=== PATIENT | female | born 1955 | race Caucasian/White ===

== ENCOUNTER 2017-01-06 17:03 | Emergency (ER) | payer BC, OTHER ==
[2017-01-06 17:21] VITALS: BMI 25.1
[2017-01-06 18:45] LABS: BASOPHIL 0.3 % (0-2.0); EOSINOPHIL 1.4 % (0-4.5); MCH 32.5 pg (25.7-33.7); MCHC 33.2 g/dl (32.0-36.0); MEAN PLT VOLUME 8.5 fl (7.5-11.1); NEUTROPHILS 56.6 % (42.8-82.8); PLATELET COUNT 227 K/MM3 (134-434); WHITE BLOOD COUNT 6.3 K/mm3 (4.0-10.0)
--- NOTE | 2017-01-06 18:52 | PDOC ---
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 The patient describes the paresthesias as pins and needles. She notes that the fatigue is accompanied by a weak, off- balance feeling when walking. She reports nausea, denies vomiting. She reports shortness of breath with no alleviating or exacerbating factors. The patients last immunotherapy (Opdivo) was on 01/04/17, 2 days ago. Denies chest pain, cough. Denies fever, chills, vomiting. Denies dizziness, headache, lightheadedness. Denies abdominal pain, diarrhea. Denies history of anemia. Allergies: none reported Surgical Hx: left lobectomy (08/2012), right ankle ORIF Social Hx: Quit smoking in 2012 PCP: Dr. Fabiola Montes Oncologist: Dr. Eaton at [facility] Neurologist: Dr. Mcgovern [facility] <Mitzy Springer - Last Filed: 01/06/17 19:08> <Colleen Zendejas - Last Filed: 01/06/17 21:53> - General Chief Complaint: Weakness Stated Complaint: WEAKNESS Time Seen by Provider: 01/06/17 17:44 Past History <Mitzy Springer - Last Filed: 01/06/17 19:08> - Past Medical History Anemia: No Asthma: No Cancer: Yes (LUNG, METS TO BRAIN &ADRENALS) Cardiac Disorders: No CVA: No COPD: Yes CHF: No Dementia: No Diabetes: No GI Disorders: Yes (acid reflux) Disorders: No HTN: No Hypercholesterolemia: No Liver Disease: No Seizures: No Thyroid Disease: No Lung CA: Yes - Surgical History Abdominal Surgery: No Appendectomy: No Cardiac Surgery: No Cholecystectomy: No Lung Surgery: Yes (left upper pulmonectomy) Neurologic Surgery: No Orthopedic Surgery: Yes - Psycho/Social/Smoking Cessation Hx Anxiety: No Suicidal Ideation: No Smoking History: Former smoker Have you smoked in the past 12 months: No If you are a former smoker, when did you quit?: 4yrs ago Information on smoking cessation initiated: No Hx Alcohol Use: No Drug/Substance Use Hx: No Substance Use Type: None <Colleen Zendejas - Last Filed: 01/06/17 21:53> - Past Medical History Allergies/Adverse Reactions: Allergies Allergy/AdvReac Type Severity Reaction Status Date / Time No Known Drug Allergies Allergy Verified 01/06/17 17:17 Home Medications: Ambulatory Orders Bupropion HCl [Wellbutrin -] 75 mg PO DAILY 09/19/14 Levetiracetam 500 mg PO BID 09/19/14 Escitalopram Oxalate [Lexapro -] 10 mg PO HS 04/26/15 Levothyroxine [Synthroid -] 112 mcg PO DAILY 01/06/17 Review of Systems - Review of Systems Able to Perform ROS?: Yes Comments:: 01/06/17 19:08 CONSTITUTIONAL: Present: fatigue, Absent: fever, chills, diaphoresis, malaise, loss of appetite HEENT: Absent: rhinorrhea, nasal congestion, throat pain, throat swelling, difficulty swallowing, mouth swelling, ear pain, eye pain, visual Changes CARDIOVASCULAR: Absent: chest pain, syncope, palpitations, irregular heart rate, lightheadedness , peripheral edema RESPIRATORY: Present: shortness of breath Absent: cough, dyspnea with exertion, orthopnea, wheezing, stridor, hemoptysis GASTROINTESTINAL: Present: nausea Absent: abdominal pain, abdominal distension, vomiting, diarrhea, constipation, melena, hematochezia GENITOURINARY: Absent: dysuria, frequency, urgency, hesitancy, hematuria, flank pain, genital pain MUSCULOSKELETAL: Absent: myalgia, arthralgia, joint swelling SKIN: Absent: rash, itching, pallor HEMATOLOGIC/IMMUNOLOGIC: Absent: easy bleeding, easy bruising, lymphadenopathy, frequent infections ENDOCRINE: Absent: unexplained weight gain, unexplained weight loss, heat intolerance, cold intolerance NEUROLOGIC: Present: paresthesias in the upper and lower extremities bilaterally. Absent: headache, focal weakness, dizziness, unsteady gait, seizure, mental status changes, bladder or bowel incontinence PSYCHIATRIC: Absent: anxiety, depression, suicidal or homicidal ideation, hallucinations. <Mitzy Springer - Last Filed: 06/11/17 19:08> *Physical Exam - Vital Signs Last Vital Signs Temp Pulse Resp BP Pulse Ox 97.8 F 89 18 117/72 100 01/06/17 17:13 01/06/17 17:13 01/06/17 17:13 01/06/17 17:13 01/06/17 17:13 - Physical Exam Comments: 01/06/17 19:08 GENERAL: Well developed, well nourished. Awake and alert. No acute distress. HEENT: Normocephalic, atraumatic. PERRLA, EOMI. No conjunctival pallor. Sclera are non- icteric. Moist mucous membranes. Oropharynx is clear. NECK: Supple. Full ROM. No JVD. Carotid pulses 2+ and symmetric, without bruits. No thyromegaly. No lymphadenopathy. CARDIOVASCULAR: +murmur. No bruits. Regular rate and rhythm. No rubs, or gallops. Distal pulses are 2+ and symmetric. PULMONARY: No evidence of respiratory distress. Lungs clear to auscultation bilaterally. No wheezing, rales or rhonchi. ABDOMINAL: Soft. Non-tender. Non-distended. No rebound or guarding. No organomegaly. Normoactive bowel sounds. MUSCULOSKELETAL Normal range of motion at all joints. No bony deformities or tenderness. No CVA tenderness. EXTREMITIES: No cyanosis. No clubbing. No edema. No calf tenderness. SKIN: Warm and dry. Normal capillary refill. No rashes. No jaundice. NEUROLOGICAL: Alert, awake, appropriate. Cranial nerves 2-12 intact. No deficits to light touch and temperature in face, upper extremities and lower extremities. No motor deficits in the in face, upper extremities and lower extremities. Normoreflexic in the upper and lower extremities. Normal speech. Toes are down-going bilaterally. Gait is normal without ataxia. No dysmetria. PSYCHIATRIC: Cooperative. Good eye contact. Appropriate mood and affect. <Mitzy Springer - Last Filed: 01/06/17 19:08> - Vital Signs Last Vital Signs Temp Pulse Resp BP Pulse Ox 97.8 F 89 18 117/72 100 01/06/17 17:13 01/06/17 17:13 01/06/17 17:13 01/06/17 17:13 01/06/17 17:13 <Colleen Zendejas - Last Filed: 01/06/17 21:53> ED Treatment Course - LABORATORY CBC & Chemistry Diagram: 01/06/17 18:36 01/06/17 18:36 - ADDITIONAL ORDERS Additional order review: 01/06/17 18:36 RBC 3.54 L MCV 98.0 H MCHC 33.2 RDW 14.0 MPV 8.5 Neutrophils % 56.6 Lymphocytes % 30.3 D Monocytes % 11.4 H Eosinophils % 1.4 Basophils % 0.3 <Butch [place] - Last Filed: 01/06/17 19:08> - LABORATORY CBC & Chemistry Diagram: 01/06/17 18:36 01/06/17 18:36 - ADDITIONAL ORDERS Additional order review: 01/06/17 18:36 RBC 3.54 L MCV 98.0 H MCHC 33.2 RDW 14.0 MPV 8.5 Neutrophils % 56.6 Lymphocytes % 30.3 D Monocytes % 11.4 H Eosinophils % 1.4 Basophils % 0.3 - RADIOLOGY Radiology Studies Ordered: Category Date Time Status CHEST X-RAY PORTABLE* [RAD] Stat Radiology 01/06/17 18:32 Ordered <Colleen Zendejas - Last Filed: 01/06/17 21:53> Medical Decision Making - Medical Decision Making 01/06/17 18:48 61-year-old female presents with several days of fatigue, tingling in arms and legs bilaterally, feeling off balance, nausea . She feels shortness of breath. She recently received her immunotherapy and has been out in the sun for the last couple days -No vomiting, no diarrhea, no fever, no chills, no cough Histories significant for her taking immunotherapy with OPDIVO Past medical history significant for lung cancer and she is status post left lobectomy 2013 Social history , quit smoking in 2012, occasionally uses alcohol - oncologist is Dr. Brien Eaton -Her doctor is Dr Montes She is afebrile, normotensive, pulse in the 80s and she is 100% on room air 01/06/17 21:39 The patient does not want CAT scan of her head. She says she feels much better after fluids and she wants to go home. I told her glucose is only 69 and then she showed me her chemistries that were done on Saturday and at that time. The glucose is 74. I told her to eat some food. She says she feels much better now and feels that she was out in the sun too long. This no evidence of any acute coronary syndrome. Cardiac enzymes are negative. An EKG did not show any acute ischemia. Patient will be discharged home to follow-up with her regular physicians <Colleen Zendejas - Last Filed: 01/06/17 21:53> *DC/Admit/Observation/Transfer - Attestations Scribe Attestion: 01/06/17 19:09 Documentation prepared by DRAGAN Ren, acting as certified medical coder for Colleen Zendejas MD. <Mitzy Springer - Last Filed: 01/06/17 19:08> <Colleen Zendejas - Last Filed: 01/06/17 21:53> Diagnosis at time of Disposition: Weakness - Discharge Dispostion Disposition: HOME Condition at time of disposition: Stable - Referrals Referrals: Fabiola Montes MD [Primary Care Provider] - - Patient Instructions Printed Discharge Instructions: DI for Numbness/tingling, DI for Fatigue Additional Instructions: please follow up with your regular physician return for any worsening symptoms
[2017-01-06 19:10] LABS: ALBUMIN 3.6 g/dl (3.4-5.0); ANION GAP 13 (8-16); BILIRUBIN,TOTAL 0.3 mg/dL (0.2-1.0); CALCIUM 8.7 mg/dL (8.5-10.1); CO2 22 mmol/L (21-32); CREATININE 1.1 mg/dL (0.55-1.02); GLUCOSE,RANDOM 69 mg/dL (74-106); SGOT/AST 13 U/L (15-37); SGPT/ALT 13 U/L (12-78)
[2017-01-06 19:13] LABS: ALK PHOS 89 U/L (45-117); TROPONIN I < 0.02 ng/ml (0.00-0.05)
[2017-01-06 19:19] LABS: INR 0.9 (0.82-1.09); PROTHROMBIN TIME (PATIENT) 9.9 SEC (9.98-11.88)
[2017-01-06 19:22] LABS: ACTIVATED PTT 31.9 SECONDS (26.9-34.4)
[2017-01-06 19:32] LABS: URINE APPEARANCE CLEAR; URINE BILIRUBIN NEGATIVE (NEGATIVE); URINE BLOOD NEGATIVE (NEGATIVE); URINE COLOR COLORLESS; URINE GLUCOSE (UA) NEGATIVE (NEGATIVE); URINE KETONE NEGATIVE (NEGATIVE); URINE LEUK ESTERASE NEGATIVE (NEGATIVE); URINE NITRITE NEGATIVE (NEGATIVE); URINE PROTEIN NEGATIVE (NEGATIVE); URINE UROBILINOGEN NEGATIVE E.U./dl (0.2-1.0)
[2017-01-06 21:58] VITALS: BP 120/70; PULSE 85; TEMP 98
--- NOTE | 2017-01-07 14:07 | EKG ---
Test Reason : Blood Pressure : / mmHG Vent. Rate : 068 BPM Atrial Rate : 068 BPM P-R Int : 140 ms QRS Dur : 090 ms QT Int : 426 ms P-R-T Axes : 064 004 056 degrees QTc Int : 452 ms NORMAL SINUS RHYTHM CANNOT RULE OUT SEPTAL INFARCT (CITED ON OR BEFORE 17-FEB-2014) ABNORMAL ECG WHEN COMPARED WITH ECG OF 17-FEB-2014 20:12, PREMATURE VENTRICULAR COMPLEXES ARE NO LONGER PRESENT T WAVE VARIATION Confirmed by GARY PRICE MD ([id number]) on 01/07/2017 2:06:57 PM Referred By: Confirmed By:GARY PRICE MD
== END 2017-01-06 21:58 | disposition home or self-care (01) ==
LOC: JER 17:03
DX: R53.1 Weakness (principal); J44.9 Chronic obstructive pulmonary disease, unspecified; K21.9 Gastro-esophageal reflux disease without esophagitis; Z87.891 Personal history of nicotine dependence; C34.90 Malignant neoplasm of unspecified part of unspecified bronchus or lung; C79.70 Secondary malignant neoplasm of unspecified adrenal gland; C79.31 Secondary malignant neoplasm of brain
CPT/HCPCS: 36415; 71010-TC; 80053; 81003; 82550; 84484; 85025; 85379; 85610; 85730; 86850; 86900; 86901; 87086; 93005; 93010; 99283-25

== ENCOUNTER 2017-01-23 09:31 | Day surgery (SDC) | payer BC, OTHER ==
[2017-01-22 14:51] VITALS: BMI 25.4
[2017-01-23] MEDS ORDERED: PROPOFOL 20 ML ONE ×2 (11:00)
[2017-01-23] MEDS ORDERED: LABETALOL HCL 5 MG/1 ML (100MG/20 ML VIAL) ONE (11:18)
[2017-01-23 11:54] VITALS: TEMP 97.5
[2017-01-23 14:17] VITALS: BP 106/66; PULSE 70
--- NOTE | 2017-01-24 15:31 | PATH ---
Surgical Pathology Report Patient Name: ROSS JUAN [facility]. Rec. #: [id number] /Age/Gender: 1955 (Age: 61) / F Account: [id number] Location: U-ENDOSCOPY Taken: 01/23/2017 Received: 01/23/2017 Reported: 01/24/2017 Physicians: Hayden Cm M.D. Specimen(s) Received A: BX RECTAL POLYP B: BX SIGMOID POLYP Clinical History Screening Colon polyps, AVMs, diverticulosis Final Diagnosis A. COLON, RECTUM, BIOPSY: COLONIC MUCOSA WITH NO PATHOLOGIC CHANGES. NO ACTIVE COLITIS, ARCHITECTURAL DISTORTION, GRANULOMATA, OR DYSPLASIA IDENTIFIED. NO MICROSCOPIC COLITIS IDENTIFIED (NO LYMPHOCYTIC OR COLLAGENOUS COLITIS IDENTIFIED). B. COLON, SIGMOID, BIOPSY: HYPERPLASTIC POLYP. Electronically Signed Freedom Wood M.D. Gross Description A. Received in formalin, labeled "biopsy rectal polyp" are 2 ballesteros, irregular portions of soft tissue measuring 0.4 and 0.5 cm. in greatest dimension. The specimens are submitted in toto in one cassette. B. Received in formalin, labeled "biopsy sigmoid polyp" are 6 ballesteros, irregular portions of soft tissue ranging from 0.1-0.4 cm. in greatest dimension. The specimens are submitted in toto in one cassette. 01/23/201701/23/2017
== END 2017-01-23 13:00 | disposition home or self-care (01) ==
LOC: JASU-ENDO 09:31
PROVIDERS: ATTEND Internal Medicine Gastroenterology
PROC: 0DBN8ZX Excision of Sigmoid Colon, Via Natural or Artificial Opening Endoscopic, Diagnostic (ICD-10-PCS; 2017-01-23)
PROC: 0DBP8ZX Excision of Rectum, Via Natural or Artificial Opening Endoscopic, Diagnostic (ICD-10-PCS; principal; 2017-01-23 10:30)
DX: Z12.11 Encounter for screening for malignant neoplasm of colon (principal); K62.1 Rectal polyp; D12.5 Benign neoplasm of sigmoid colon; K57.30 Diverticulosis of large intestine without perforation or abscess without bleeding; Z83.71 Family history of colonic polyps
CPT/HCPCS: 88305-TC

== ENCOUNTER 2018-04-25 08:15 | Day surgery (SDC) | payer OTHER ==
[2018-04-21 16:08] VITALS: BMI 26.2
[2018-04-25] MEDS ORDERED: MIDAZOLAM HCL 2 MG/2 ML SINGLE DOSE VIAL ONE (09:05)
[2018-04-25] MEDS ORDERED: BUPIVACAINE HCL/PF 0.5% (5MG/ML) 10 ML VIAL ONE ×2 (09:15→10:11)
[2018-04-25] MEDS ORDERED: ceFAZolin SODIUM 1 GM VIAL ONE (09:32)
[2018-04-25] MEDS ORDERED: DEXAMETHASONE SOD PHOSPHATE 4 MG/1 ML VIAL ONE (09:32)
[2018-04-25] MEDS ORDERED: ONDANSETRON 4 MG/2 ML VIAL ONE ×2 (09:32→11:07)
[2018-04-25] MEDS ORDERED: PROPOFOL 20 ML ONE (09:35)
[2018-04-25] MEDS ORDERED: KETOROLAC TROMETHAMINE 30 MG/1 ML VIAL ONE (09:43)
[2018-04-25] MEDS ORDERED: DESFLURANE GAS 240 ML BOTTLE IH ONE (09:59)
[2018-04-25] MEDS ORDERED: morphine CARPU-JECT 10 MG/1 ML DISP.SYRIN ONE (10:14)
[2018-04-25] MEDS ORDERED: morphine CARPU-JECT 10 MG/1 ML DISP.SYRIN NR ONE (10:19)
[2018-04-25] MEDS ORDERED: BUPIVACAINE HCL/PF 0.5% (5MG/ML) 10 ML VIAL IJ ONE (10:19)
[2018-04-25] MEDS ORDERED: oxyCODONE HCL 5 MG TABLET PO PRN (10:31)
[2018-04-25] MEDS ORDERED: ONDANSETRON 4 MG/2 ML VIAL IVPUSH PRN (10:31)
[2018-04-25] MEDS ORDERED: LACTATED RINGERS SOLUTION 1,000 ML IV SCH (10:45)
[2018-04-25 11:56] VITALS: TEMP 97.6
[2018-04-25 14:24] VITALS: BP 141/75; PULSE 82
--- NOTE | 2018-04-26 07:44 | OP ---
DATE OF OPERATION: 04/25/2018 PREOPERATIVE DIAGNOSIS: Torn medial meniscus, left knee. POSTOPERATIVE DIAGNOSIS: Torn medial and lateral meniscus, left knee, with chondromalacia, hypertrophic synovium, joint debris, and osteochondral defect on the medial femoral condyle. PROCEDURE PERFORMED: Operative arthroscopy, left knee, with partial medial and lateral meniscectomies, chondroplasty, synovectomy, joint debridement, and microfracture technique using for local stem cell recruitment for osteochondral defect. SURGEON: Lin Verdugo MD COAL PICKER: Emory Summers ANESTHESIOLOGIST: Cristal Trent MD ANESTHESIA: General anesthesia. THE PROCEDURE: Consisted of the patient being brought into the operating room and gently transferred from the stretcher to the OR table with all bony prominences well padded. The left knee was prepared and draped in sterile fashion. The patient was given intravenous antibiotics and copious irrigation throughout the procedure to minimize the risk for infection. A complete [id number] discussion was conducted with the patient. Risks included, but were not limited to, infection, bleeding, , paralysis, increased pain, and need for repeat surgery. The patient asked questions, understood the procedure and desired to proceed with surgical treatment. An appropriate time-out which was inclusive of, but not limited to, site of surgery, surgeon, anesthesiologist, type of surgery, was conducted. Following sterile preparation and draping of the left leg, the leg was exsanguinated using an Esmarch bandage, and tourniquet was inflated to 325 mmHg. Suprapatellar medial and lateral portals were used to introduce the arthroscope and arthroscopic instruments. The knee was examined. There was noted to be hypertrophic synovium in the suprapatellar pouch, and partial synovectomy was performed. Inferior surface of the patellar damage consisted of chondromalacia. This was debrided using the shaver and radiofrequency wand. The medial and lateral gutters were without plica or loose body. Medial meniscus was found to have a tear at the posterior horn, and this was resected using a shaver and radiofrequency wand. There was noted to be an osteochondral defect approximately 1 cm in diameter, which was debrided in microfracture technique using K-wire drilling of appropriate diameter were used to create a site for introduction of stem cells. Intercondylar region joint, and joint debridement was performed. Lateral meniscus was found to have a tear of the posterior horn, and this was resected using shaver and radiofrequency wand. The knee was then copiously irrigated with sterile saline irrigant. The wounds were closed with 4-0 undyed Vicryl followed by Steri-Strips, Xeroform, 4x4s, combine, sterile Webril, Jeff bandages, and a knee immobilizer. The patient was then gently awoken from anesthesia without incident, transferred from the operating room to the recovery room in satisfactory condition. There were no intraoperative complications. LIN VERDUGO M.D. [id number]
--- NOTE | 2018-04-30 18:12 | PATH ---
Surgical Pathology Report Patient Name: ROSS JUAN Med. Rec. #: [id number] /Age/Gender: 1955 (Age: 62) / F Account: [id number] Location: [facility] AMBULATORY Taken: 04/25/2018 Received: 04/29/2018 Reported: 04/30/2018 Physicians: Dimitri Verdugo M.D. Specimen(s) Received LEFT KNEE SHAVINGS Clinical History Left knee internal derangement Final Diagnosis KNEE SHAVINGS, LEFT, ARTHROSCOPY: FIBROSYNOVIAL TISSUE WITH PROMINENT LYMPHOPLASMACYTIC (CHRONIC) INFLAMMATORY INFILTRATE AND REACTIVE SYNOVIAL HYPERPLASIA. Comment: Although these findings are non-specific, lymphoplasmacytic infiltrate involving synovium with reactive synovial hyperplasia may be seen in association with rheumatoid arthritis. Correlation with clinical/radiologic and serologic findings is suggested Electronically Signed Brittany Lindo M.D. Gross Description Received in formalin, labeled "left knee shavings," is a 5 x 5 x 0.5 cm. aggregate of ballesteros-yellow soft tissue fragments. A quality audit representative portion is submitted in one cassette. MLSZ/04/29/2018 [email or web address]/04/29/2018
== END 2018-04-25 14:15 | disposition home or self-care (01) ==
LOC: FASU 08:15 → MERGE 08:15 → FASU 14:15
PROVIDERS: ATTEND Orthopaedic Surgery
PROC: 0SBD4ZZ Excision of Left Knee Joint, Percutaneous Endoscopic Approach (ICD-10-PCS; 2018-04-25)
PROC: 0SBD4ZZ Excision of Left Knee Joint, Percutaneous Endoscopic Approach (ICD-10-PCS; 2018-04-25)
PROC: 0SBD4ZZ Excision of Left Knee Joint, Percutaneous Endoscopic Approach (ICD-10-PCS; 2018-04-25)
PROC: 0SBD4ZZ Excision of Left Knee Joint, Percutaneous Endoscopic Approach (ICD-10-PCS; principal; 2018-04-25 09:30)
DX: S83.242A Other tear of medial meniscus, current injury, left knee, initial encounter (principal); M94.262 Chondromalacia, left knee; M67.262 Synovial hypertrophy, not elsewhere classified, left lower leg; M21.862 Other specified acquired deformities of left lower leg; X58.XXXA Exposure to other specified factors, initial encounter; Y93.9 Activity, unspecified; Y92.9 Unspecified place or not applicable
CPT/HCPCS: 29879; 29880; G0289; 88304-TC; 94760

== ENCOUNTER 2018-10-07 12:40 | Emergency (ER) | payer BC ==
--- NOTE | 2018-10-07 12:43 | PDOC ---
History of Present Illness - General Chief Complaint: Injury Stated Complaint: BANGED HEAD ON PAINT CAN 4 DAYS AGO Time Seen by Provider: 10/07/18 12:43 - History of Present Illness Initial Comments: 63yo F with PMH of lung carcinoma s/p lung resection and brain metastasis s/p radiation presenting after a fall. Patient states the episode occurred on Saturday (three days ago). She does not remember the entire episode, but recalls that she tripped and fell when her leg gave out. She fell back and hit her head on a paint can. Her head had profuse bleeding which she controlled with pressure and cleaned in the shower. Denies nausea, vomiting. Patient has taken keppra ever since she had a seizure after falling twice in 2013. Since the fall she has not felt quite like herself: "I feel off." She went to work today and her coworkers noticed that she "had trouble getting words out" and had some slurred speech. Patient endorses a 7/10 headache. Does not remember when her last tetanus shot was. Denies having frequent falls. Does not take anticoagulants. No fevers, chills, chest pain, or shortness of breath. Past History - Past Medical History Allergies/Adverse Reactions: Allergies Allergy/AdvReac Type Severity Reaction Status Date / Time No Known Drug Allergies Allergy Verified 10/07/18 12:42 Home Medications: Ambulatory Orders Levetiracetam 500 mg PO BID 09/19/14 Nivolumab [Opdivo] 100 mg IV ASDIR 01/22/17 Escitalopram Oxalate [Lexapro -] 20 mg PO DAILY 01/02/18 Levothyroxine Sodium [Synthroid] 137 mcg PO DAILY 01/02/18 Bupropion HCl [Bupropion Xl] 150 mg PO DAILY 10/07/18 Anemia: No Asthma: No Cancer: Yes (LUNG) Cardiac Disorders: No CVA: No COPD: No CHF: No Dementia: No Diabetes: No GI Disorders: No Disorders: No HTN: No Hypercholesterolemia: No Liver Disease: No Psychiatric Problems: Yes Seizures: Yes (had one seizure 4 yrs ago-MRI done 03/2018-negative) Thyroid Disease: Yes Lung CA: Yes - Surgical History Abdominal Surgery: No Appendectomy: No Cardiac Surgery: No Cholecystectomy: No Lung Surgery: Yes (LOBECTOMY 07/2012) Neurologic Surgery: No Orthopedic Surgery: Yes (ORIF Calcaneous Right) - Suicide/Smoking/Psychosocial Hx Smoking History: Former smoker Have you smoked in the past 12 months: No If you are a former smoker, when did you quit?: 2011 'Breaking Loose' booklet given: 07/22/18 Hx Alcohol Use: No Drug/Substance Use Hx: No Substance Use Type: None Hx Substance Use Treatment: No Review of Systems - Review of Systems Comments:: Constitutional: no fever, no chills HEENT: +throat pain, +nasal congestion Cardiovascular: no chest pain, no palpitations Respiratory: no cough, no shortness of breath Gastrointestinal: no abdominal pain, no nausea Genitourinary: no dysuria, no frequency Musculoskeletal: no myalgia, no arthralgia Skin: no rash, no itching Neurologic: no headache, no dizziness *Physical Exam - Physical Exam Comments: General: Awake, alert, and fully oriented, in no acute distress Head: No signs of trauma Eyes: EOMI, sclera anicteric ENT: Moist mucus membranes Neck: Normal ROM, supple Lungs: Lungs clear, Normal breath sounds Cardio: Regular rhythm, S1 and S2 present Abdomen: Soft, nontender. No guarding, no rebound, no masses Extremities: Normal range of motion, Distal pulses present SKIN: Warm, Dry, normal turgor Neurologic: Cranial nerves II through XII intact. Normal reflexes, speech, sensation, strength, coordination, and gait. Medical Decision Making - Medical Decision Making 63yo F with PMH of lung carcinoma s/p lung resection and brain metastasis s/p radiation presenting after a fall. DDX including but not limited to brain bleed, enlarged metastasis, seizure, syncope CT head 975 tylenol Boostrix 10/07/18 13:[address] Srinivasan, radiologist, the most recent MRI is from 2014 and he is unable to specify whether or not the edema is acute. 10/07/18 14:[address] Eloisa Rossi MD, patient's neuro-radiologist, [phone] (phone number found through internet search). Left a message; was informed that someone from the team would call back. 10/07/18 14:33 Have not yet received callback from Dr. Rossi. Per comparison to imaging study report on patient's phone, CT findings appear consistent. 10/07/18 15:[address] Rossi who will follow-up with patient on . Patient discharged 10/07/18 15:25 *DC/Admit/Observation/Transfer Diagnosis at time of Disposition: Fall - Discharge Dispostion Disposition: HOME Condition at time of disposition: Stable - Referrals - Patient Instructions Printed Discharge Instructions: How to Prevent Falls Additional Instructions: You came into the ED after a fall. Follow-up with your neurologist in 2-3 days to discuss this ED visit and to evaluate your progress. Boostrix (Tdap) given today, 10/07/18. Keep note of this date for future reference. Immediate medical attention is required if you experience: Increased pain or swelling, signs of infection including fever and chills, nausea and vomiting, lightheadedness, inability to breathe or very rapid breathing, rapid irregular heartbeat, chest pain. If you think you are having an emergency, call for emergency medical services or present to the emergency department right away - Post Discharge Activity
[2018-10-07 12:59] VITALS: BP 144/88; PULSE 67; TEMP 98.3; BMI 25.3
[2018-10-07] MEDS ORDERED: ACETAMINOPHEN 325 MG TABLET (FP) PO ONE (13:20)
[2018-10-07] MEDS ORDERED: ACETAMINOPHEN 325 MG TABLET (FP) ONE (13:23)
[2018-10-07] MEDS ORDERED: DIPHTH,PERTUSS(ACELL),TET 0.5 ML DISP.SYRIN IM ONE ×2 (13:27→14:28)
--- NOTE | 2018-10-07 13:27 | PDOC ---
Attending Attestation - Resident Resident Name: Selena Terry - ED Attending Attestation I have performed the following: I have examined & evaluated the patient, The case was reviewed & discussed with the resident, I agree w/resident's findings & plan, Exceptions are as noted - HPI HPI: 10/07/18 13:23 63 year old female c/ hx of lung ca c/ mets to brain presents with head injury. 3 days ago, + mechanical fall and hit posterior head. She is not sure if she had LOC. However, since then, has had a posterior headache. [place] a "little foggy" and tired, but no other acute symptoms. Denies numbness, weakness, tingling. Denies other injuries. Pt went to work today where her coworkers suggested that she gets checked out in the ED. - Physicial Exam PE: 10/07/18 13:22 GENERAL: Awake, alert, and fully oriented, in no acute distress HEAD: Approx 3x3 cm posterior occiput hematoma. No lacerations. EYES: PERRLA, EOMI, sclera anicteric, conjunctiva clear ENT: Auricles normal inspection, hearing grossly normal, nares patent, Moist mucosa NECK: Normal ROM, supple, no c-spine tenderness. LUNGS: Breath sounds equal, clear to auscultation bilaterally. No wheezes, and no crackles HEART: Regular rate and rhythm, normal S1 and S2, no murmurs, rubs or gallops EXTREMITIES: Normal range of motion, no edema. No clubbing or cyanosis. No cords, erythema, or tenderness NEUROLOGICAL: Cranial nerves II through XII grossly intact. Normal speech, normal gait. moves all extremities equally. SKIN: Warm, Dry, normal turgor, no rashes or lesions noted. - Medical Decision Making 10/07/18 13:26 Vital Signs Temp Pulse Resp BP Pulse Ox 98.3 F 67 16 144/88 98 10/07/18 12:42 10/07/18 12:42 10/07/18 12:42 10/07/18 12:42 10/07/18 12:42 I suspect the patient likely has a mild concussion. Will need brain rest. However, will obtain head CT to r/o underlying injury. If head CT negative, d/c with supportive care and follow up with her doctors. 10/07/18 14:49 Low-attenuation density/lesion is anechoic edema and the left frontal lobe, anteriorly as well as at the level of the ambrose radiate and centrum semiovale extending to the left parietal lobe. There is a dural based hyperdensity at the left posterior frontal/occipital junction measuring 1.3 cm suspicious for previously visualized lesion on prior MRI of the brain dated 02/18/2014. Mild to moderate soft tissue swelling/hematoma over the left occipital bone. I suspect that these findings may be due to her metastasis. Pt has an online portal with her MRI with and without contrast results from August 05, 2018: 1. Slight increase insize and perfusion parameters of the 1.0 cm right posterior parietal parasagittal metastasis, possibly the sequelae of Nivolummab therapy as opposed to increasing viable tumor, continued attention on follow up. 2. The remainder of the metastases demonstrating no findings to suggest new or increasingviable tumor. 3. No new metastases. Left posterior lateral frontal lobe metastasis now measuring 1.6 x 1.1 centimeters with increased central clearing of enhancement. Superficial left posterior-lateral temporal lobe metastasis now measuring 1.7 x 1.3 cm. Right parasagittal parietal metastasis measuring 1.90 x 0.9 cm. No evidence of infarction. 10/07/18 15:20 Dr. Terry had spoken to Dr. Rossi, pt's doctor. States that the patient can follow up tomorrow with them. This is likely from her metastasis. The patient's family and pt feels comfortable going home and for outpatient follow up tomorrow. Return precautions given.
== END 2018-10-07 15:26 | disposition home or self-care (01) ==
LOC: FER 12:40
PROC: 3E0234Z Introduction of Serum, Toxoid and Vaccine into Muscle, Percutaneous Approach (ICD-10-PCS; principal; 2018-10-07)
DX: Z04.3 Encounter for examination and observation following other accident (principal); Z85.118 Personal history of other malignant neoplasm of bronchus and lung; Z87.891 Personal history of nicotine dependence; F99 Mental disorder, not otherwise specified; E07.9 Disorder of thyroid, unspecified
CPT/HCPCS: 70450-TC; 90715; 99281-25

== ENCOUNTER 2018-11-21 21:22 | Emergency (ER) | payer BC ==
[2018-11-21 21:42] VITALS: BP 138/77; PULSE 75; TEMP 97.8; BMI 26.0
--- NOTE | 2018-11-21 22:00 | PDOC ---
History of Present Illness - General Chief Complaint: Injury Stated Complaint: RT HAND INJURY Time Seen by Provider: 11/21/18 21:24 - History of Present Illness Initial Comments: This 63-year-old woman with a history of lung cancer( metastatic to the brain) presents with an injury to her right wrist. The patient states that she fell off of the couch that she was napping on this evening, bracing her fall with her right arm. Impact was on the right wrist, which has subsequently become swollen and painful. She denies head / neck injury or LOC. She has not had any forearm/elbow/shoulder pain after the injury. She states that she had immunotherapy for her metastatic lung cancer earlier today and this frequently makes her somewhat groggy, explaining how she fell off of the couch. She currently has no headache/nausea/lightheadedness. She states she occasionally has taken hydrocodone in the past for knee pain but does not have any at home currently. She also has taken nonsteroidal anti- inflammatory medications in the past for [id number] pain. Past History - Past Medical History Allergies/Adverse Reactions: Allergies Allergy/AdvReac Type Severity Reaction Status Date / Time No Known Drug Allergies Allergy Verified 10/07/18 12:42 Home Medications: Ambulatory Orders Levetiracetam 500 mg PO BID 09/19/14 Nivolumab [Opdivo] 100 mg IV ASDIR 01/22/17 Escitalopram Oxalate [Lexapro -] 20 mg PO DAILY 01/02/18 Levothyroxine Sodium [Synthroid] 137 mcg PO DAILY 01/02/18 Bupropion HCl [Bupropion Xl] 150 mg PO DAILY 10/07/18 Oxycodone HCl/Acetaminophen [Percocet 5-325 mg Tablet] 1 tab PO Q6H PRN #10 tablet MDD 3 tabs 11/21/18 Anemia: No Asthma: No Cancer: Yes (LUNG) Cardiac Disorders: No CVA: No COPD: No CHF: No Dementia: No Diabetes: No GI Disorders: No Disorders: No HTN: No Hypercholesterolemia: No Liver Disease: No Psychiatric Problems: Yes Seizures: Yes (had one seizure 4 yrs ago-MRI done 03/2018-negative) Thyroid Disease: Yes Lung CA: Yes - Surgical History Abdominal Surgery: No Appendectomy: No Cardiac Surgery: No Cholecystectomy: No Lung Surgery: Yes (LOBECTOMY 07/2012) Neurologic Surgery: No Orthopedic Surgery: Yes (ORIF Calcaneous Right) - Suicide/Smoking/Psychosocial Hx Smoking History: Current some day smoker Have you smoked in the past 12 months: No Number of Cigarettes Smoked Daily: 1 If you are a former smoker, when did you quit?: 2011 Information on smoking cessation initiated: Yes 'Breaking Loose' booklet given: 07/22/18 Hx Alcohol Use: No Drug/Substance Use Hx: No Substance Use Type: None Hx Substance Use Treatment: No Review of Systems - Review of Systems Able to Perform ROS?: Yes Comments:: 12 point review of systems is negative except for what is noted in the history of present illness *Physical Exam - Vital Signs Last Vital Signs Temp Pulse Resp BP Pulse Ox 97.8 F 75 18 138/77 97 11/21/18 21:23 11/21/18 21:23 11/21/18 21:23 11/21/18 21:23 11/21/18 21:23 - Physical Exam Comments: GENERAL: Adult female, alert and oriented 3, in mild distress secondary to right wrist pain HEAD: Normal with no signs of trauma. EYES: PERRLA, EOMI, sclera anicteric, conjunctiva clear. ENT: Ears normal, nares patent, oropharynx clear without exudates. Moist mucous membranes. NECK: Normal range of motion, nontender, supple without lymphadenopathy, JVD, or masses. EXTREMITIES: Right wrist- edematous, deformed, markedly tender with excellent capillary refill and intact motor/sensory functioning distally Radial pulse intact at wrist; hand is warm and dry Remainder of the extremity exam is normal NEUROLOGICAL: Cranial nerves II through XII grossly intact. Normal speech. No focal neurological deficits. MUSCULOSKELETAL: Back non-tender to palpation, no CVA tenderness Progress Note - Progress Note Progress Note: Right wrist x-ray performed: Distal radius fracture present with mild displacement of fragments in both dorsal and volar directions. No evidence of ulnar fracture Dorsal splint fashioned from Ortho-Glass material and secured with Jeff wrap. Distal neurovascular functioning intact after placement of the splint. Patient discharged with plan to follow-up with her orthopedist, . She states that she will call the office on Saturday, November 24 and follow-up within the next 48 hours. Right arm was placed in a sling and patient will keep the arm elevated as much as possible for the next 48 hours. Patient is given Percocet 5/325, one tablet here in the emergency room. Prescription for Percocet 5/325, #10 to be taken up to 3 times a day as needed for severe pain was sent to her pharmacy. Motrin/Tylenol will be taken as needed for [id number] pain. If she would has persistent severe pain or develops numbness in her fingers, she should return to the emergency room *DC/Admit/Observation/Transfer Diagnosis at time of Disposition: Distal radius fracture, right Qualifiers: Encounter type: initial encounter Fracture type: closed Fracture morphology: unspecified fracture morphology Qualified Code(s): S52.501A - Unspecified fracture of the lower end of right radius, initial encounter for closed fracture - Discharge Dispostion Disposition: HOME Condition at time of disposition: Stable - Prescriptions Prescriptions: Oxycodone HCl/Acetaminophen [Percocet 5-325 mg Tablet] 1 tab PO Q6H PRN #10 tablet MDD 3 tabs PRN Reason: Severe Pain - Referrals Referrals: Fabiola Montes MD [Primary Care Provider] - Dimitri Verdugo MD [Staff Physician] - - Patient Instructions Printed Discharge Instructions: Wrist Fracture Additional Instructions: Keep splint in place Keep wrist at heart level or above is much as possible (sling when up and around ) Tylenol/Motrin as needed for ncxw-[id number] pain Percocet 5/325 up to 3 tabs a day as needed for severe pain Follow-up with on Saturday, 11/24 Return to ER if you have severe, persistent pain or numbness in fingers - Post Discharge Activity
== END 2018-11-21 23:26 | disposition home or self-care (01) ==
LOC: FER 21:22
PROC: 2W3CX1Z Immobilization of Right Lower Arm using Splint (ICD-10-PCS; principal; 2018-11-21)
DX: S52.501A Unspecified fracture of the lower end of right radius, initial encounter for closed fracture (principal); W18.39XA Other fall on same level, initial encounter; Y93.89 Activity, other specified; Y92.89 Other specified places as the place of occurrence of the external cause; C80.1 Malignant (primary) neoplasm, unspecified; F99 Mental disorder, not otherwise specified; F17.210 Nicotine dependence, cigarettes, uncomplicated
CPT/HCPCS: 73110-TC-RT-FY; 99282-25

== ENCOUNTER 2019-02-08 14:40 | Emergency (ER) | payer BC ==
[2019-02-08] MEDS ORDERED: NAPROXEN 500 MG TABLET (FP) PO ONE (14:52)
[2019-02-08] MEDS ORDERED: NAPROXEN 500 MG TABLET (FP) ONE (14:57)
[2019-02-08 14:59] VITALS: BP 127/69; PULSE 81; TEMP 98.3; BMI 24.7
--- NOTE | 2019-02-08 15:10 | PDOC ---
History of Present Illness - General Chief Complaint: Injury Stated Complaint: TOE INJURY Time Seen by Provider: 02/08/19 14:49 History Source: Patient Exam Limitations: No Limitations - History of Present Illness Initial Comments: 02/08/19 14:55 63 year old female with hx of lung cancer currently on immunotherapy p/w R 1st great toe pain. The patient woke up in the middle of the night and stubbed her toe. Since then, she has had severe pain in the first great toe. Denies numbness, weakness. Reports pain with ambulation on the great toe. Past History - Past Medical History Allergies/Adverse Reactions: Allergies Allergy/AdvReac Type Severity Reaction Status Date / Time No Known Drug Allergies Allergy Verified 10/07/18 12:42 Home Medications: Ambulatory Orders Levetiracetam 500 mg PO BID 09/19/14 Nivolumab [Opdivo] 100 mg IV ASDIR 01/22/17 Escitalopram Oxalate [Lexapro -] 20 mg PO DAILY 01/02/18 Levothyroxine Sodium [Synthroid] 137 mcg PO DAILY 01/02/18 Bupropion HCl [Bupropion Xl] 150 mg PO DAILY 10/07/18 Oxycodone HCl/Acetaminophen [Percocet 5-325 mg Tablet] 1 tab PO Q6H PRN #10 tablet MDD 3 tabs 11/21/18 Anemia: No Asthma: No Cancer: Yes (LUNG) Cardiac Disorders: No CVA: No COPD: No CHF: No Dementia: No Diabetes: No GI Disorders: No Disorders: No HTN: No Hypercholesterolemia: No Liver Disease: No Psychiatric Problems: Yes Seizures: Yes (had one seizure 4 yrs ago-MRI done 03/2018-negative) Thyroid Disease: Yes Lung CA: Yes - Surgical History Abdominal Surgery: No Appendectomy: No Cardiac Surgery: No Cholecystectomy: No Lung Surgery: Yes (LOBECTOMY 07/2012) Neurologic Surgery: No Orthopedic Surgery: Yes (ORIF Calcaneous Right) - Suicide/Smoking/Psychosocial Hx Smoking History: Current some day smoker Have you smoked in the past 12 months: No Number of Cigarettes Smoked Daily: 1 If you are a former smoker, when did you quit?: 2011 'Breaking Loose' booklet given: 07/22/18 Hx Alcohol Use: No Drug/Substance Use Hx: No Substance Use Type: None Hx Substance Use Treatment: No Review of Systems - Review of Systems Able to Perform ROS?: Yes Comments:: 02/08/19 15:15 GENERAL/CONSTITUTIONAL: [No fever or chills. No weakness. No weight change.] HEAD, EYES, EARS, NOSE AND THROAT: [No change in vision. No ear pain or discharge. No sore throat.] CARDIOVASCULAR: [No chest pain or shortness of breath.] RESPIRATORY: [No cough, wheezing, or hemoptysis.] GASTROINTESTINAL: [No nausea, vomiting, diarrhea or constipation. No rectal bleeding.] GENITOURINARY: [No dysuria, frequency, or change in urination.] MUSCULOSKELETAL: [No joint or muscle swelling or pain. No neck or back pain.] + 1st right toe pain SKIN AND BREASTS: [No rash or easy bruising.] NEUROLOGIC: [No headache, vertigo, loss of consciousness, or loss of sensation.] PSYCHIATRIC: [No depression or anxiety.] ENDOCRINE: [No increased thirst. No abnormal weight change.] HEMATOLOGIC/LYMPHATIC: [No anemia, easy bleeding, or history of blood clots.] ALLERGIC/IMMUNOLOGIC: [No hives or skin allergy. No latex allergy.] *Physical Exam - Physical Exam Comments: 02/08/19 15:17 GENERAL: Awake, alert, and fully oriented, in no acute distress HEAD: No signs of trauma EYES: EOMI, sclera anicteric, conjunctiva clear ENT: Auricles normal inspection, hearing grossly normal, nares patent, Moist mucosa NECK: Normal ROM, supple EXTREMITIES: Normal range of motion, no edema. RLE: 2+ DP pulse. Ankle with FROM and non tenderness. No tenderness elicited along the metatarsals. TTP 1st right great toe with no obvious deformity but with ecchymosis. TTP over the IP joint. NEUROLOGICAL: Cranial nerves II through XII grossly intact. Normal speech, normal gait SKIN: Warm, Dry, normal turgor, no rashes or lesions noted. ED Treatment Course - RADIOLOGY Radiology Studies Ordered: Category Date Time Status TOE(S) RIGHT [RAD] Stat Radiology 02/08/19 14:49 Ordered Medical Decision Making - Medical Decision Making 02/08/19 15:23 r/o 1st great toe fracture. Xray and reassess. 02/08/19 15:50 Radiograph is nondisplaced avulsion fracture to the base of the first right heel distal phalanx in the base of the first with intra-articular extension of fracture lines noted in both fracture sites. Pt's 1st and 2nd toe anshu taped and placed in hard sole shoe. Pt has a cane at home that she will use as assistance for ambulation. Pt has a follow up appointment with Dr. Moreno. Supportive care and RICE. Pt will go home with family. I discussed the physical exam findings, ancillary test results and final diagnoses with the patient. I answered all of the patient's questions. The patient was satisfied with the care received and felt comfortable with the discharge plan and treatment plan. The patient will call their primary care physician within 24 hours to arrange follow-up and will return to the Emergency Department with any new, persistant or worsening symptoms. *DC/Admit/Observation/Transfer Diagnosis at time of Disposition: Toe fracture, right Qualifiers: Encounter type: initial encounter Toe: great toe Fracture type: closed Phalanx : unspecified phalanx Fracture alignment: nondisplaced Qualified Code(s): S92.404A - Nondisplaced unspecified fracture of right great toe, initial encounter for closed fracture - Discharge Dispostion Disposition: HOME Condition at time of disposition: Stable Decision to Admit order: No - Referrals Referrals: Fabiola Montes MD [Primary Care Provider] - Dimitri Verdugo MD [Staff Physician] - - Patient Instructions Printed Discharge Instructions: DI for Toe Fracture Additional Instructions: You have a 1st toe fracture on your right foot. Please continue to anshu tape as demonstrated to you the first and second toe. Wear the hard sole shoe. You may use your cane at home to assist in ambulation. Please bring a copy of the results to Dr. Moreno on your follow up appointment this week. You may take 600 mg ibuprofen every 8 hours as needed for pain and/or 650 mg tylenol every 4 hours as needed for pain. If you have uncontrollable pain, please call your doctor or return to the ER. - Post Discharge Activity
== END 2019-02-08 15:57 | disposition home or self-care (01) ==
LOC: FER 14:40
PROC: 2W3UXYZ Immobilization of Right Toe using Other Device (ICD-10-PCS; principal; 2019-02-08)
DX: S92.404A Nondisplaced unspecified fracture of right great toe, initial encounter for closed fracture (principal); C34.90 Malignant neoplasm of unspecified part of unspecified bronchus or lung; F99 Mental disorder, not otherwise specified
CPT/HCPCS: 73660-TC-FY; 99282-25

== ENCOUNTER 2019-03-18 11:24 | Emergency (ER) | payer BC ==
[2019-03-18 11:45] VITALS: BP 130/72; PULSE 71; TEMP 98.3; BMI 24.5
[2019-03-18] MEDS ORDERED: ACETAMINOPHEN 325 MG TABLET (FP) PO ONE (11:53)
--- NOTE | 2019-03-18 12:20 | PDOC ---
History of Present Illness - General Chief Complaint: Injury Stated Complaint: fall Time Seen by Provider: 03/18/19 11:27 History Source: Patient Exam Limitations: No Limitations - History of Present Illness Initial Comments: 03/18/19 12:23 63-year-old woman with a history of lung cancer( metastatic to the brain) currently s/p radiation, lung resection and on immunotherapy, arthritis presenting s/p mechanical fall down 2 steps yesterday afternoon. she landed on concrete, did hit her head, but no AMS or LOC or seizure. she braced her fall with her hands and knees, c/o right knee pain and swelling and left wrist pain and swelling and bruising. no prodroma sx of cp, sob, dizziness, syncope, neurologic changes. has predisposition to falls with prior visits, does use cane occasionally no anticoagulant use. tetanus is UTD in the last 10 years. she does have h/o arthritis/osteoporosis, last week had repair to her right wrist for fx. orthopedist Dr Arzate 03/18/19 12:29 Past History - Past Medical History Allergies/Adverse Reactions: Allergies Allergy/AdvReac Type Severity Reaction Status Date / Time No Known Drug Allergies Allergy Verified 03/18/19 11:25 Home Medications: Ambulatory Orders Levetiracetam 500 mg PO BID 09/19/14 Escitalopram Oxalate [Lexapro -] 20 mg PO DAILY 01/02/18 Levothyroxine Sodium [Synthroid] 137 mcg PO DAILY 01/02/18 Anemia: No Asthma: No Cancer: Yes (LUNG) Cardiac Disorders: No CVA: No COPD: No CHF: No Dementia: No Diabetes: No GI Disorders: No Disorders: No HTN: No Hypercholesterolemia: No Liver Disease: No Psychiatric Problems: Yes Seizures: Yes (had one seizure 4 yrs ago-MRI done 03/2018-negative) Thyroid Disease: Yes Lung CA: Yes - Surgical History Abdominal Surgery: No Appendectomy: No Cardiac Surgery: No Cholecystectomy: No Lung Surgery: Yes (LOBECTOMY 07/2012) Neurologic Surgery: No Orthopedic Surgery: Yes (ORIF Calcaneous Right) - Suicide/Smoking/Psychosocial Hx Smoking History: Current some day smoker Have you smoked in the past 12 months: No Number of Cigarettes Smoked Daily: 1 If you are a former smoker, when did you quit?: 2011 Information on smoking cessation initiated: Yes 'Breaking Loose' booklet given: 07/22/18 Hx Alcohol Use: No Drug/Substance Use Hx: No Substance Use Type: None Hx Substance Use Treatment: No Review of Systems - Review of Systems Able to Perform ROS?: Yes Comments:: 03/18/19 12:22 Review of systems Constitutional: no fevers or chills. No weakness HEENT: no headache or dizziness. No congestion. No visual/hearing disturbances. CVS: no cp or syncope. Resp: no sob. No cough. Gastrointestinal: no abdominal pain, nausea or vomiting. Genitourinary: no urinary sx, hematuria. MUSCULOSKELETAL: +joint pain and swelling. +arthralgias, +muscle pain. +knee/ wrist pain. No neck or back pain. SKIN: no discharge, no rash. +facial abrasions. +bruising Hematologic: no easy bruising/bleeding. NEUROLOGIC: No headache, dizziness, LOC or altered mental status. No weakness, numbness or tingling. Psych: no anxiety or depression Allergic/Immunologic: no allergies All other systems reviewed and negative, or as documented in HPI. 03/18/19 12:28 *Physical Exam - Vital Signs Last Vital Signs Temp Pulse Resp BP Pulse Ox 98.3 F 71 18 130/72 97 03/18/19 11:25 03/18/19 11:25 03/18/19 11:25 03/18/19 11:25 03/18/19 11:25 - Physical Exam Comments: 03/18/19 12:25 General: GCS 15 NAD, well appearing HEENT: NCAT, PERRL, EOMI. Airway intact. No battles sign or raccoon eyes. No e/ o ocular. Dentition intact. No e/o septal hematoma, nasal bridge stable. Neck: neck supple, no midline C spine tenderness or deformity, ROM intact. No anterior mass or crepitus, trachea midline. Resp: Lungs clear bilaterally Chest: no clavicle or chest wall tenderness or crepitus. healed midline sternal scar CVS: RRR, 2+ pulses throughout. Abdomen: Abdomen soft, nontender, nondistended. Back: Back nontender, no midline spinal tenderness along cervical/thoracic/ lumbar spine, FROM, no stepoffs. MSK: Pelvis stable, Extremities symmetric, soft compartments, Proximal and distal strength 5/5, ssis architect strength 5/5 - equal and symmetric. Bilateral wrist extension and flexion, ssis architect strength preserved. Plantar flexion and dorsiflexion 5/5. FROM. sensation grossly intact in median/radial/ulnar distribution. distal ssis architect strength 5/5. 2+ radialis pulses bilaterally and symmetric. 5/5 plantar and dorsiflexion. SILT. no laxity at knee jt. 2+ DP pulses bilaterally. +right anterior knee tender, +clicking, no laxity in joint, +swelling and faint ecchymosis. ROM intact Left wrist on dorsal and ulnar aspect with tenderness, swelling and ecchymosis no scaphoid tenderness bilaterally Neuro: Alert, oriented appropriately. CN II-XII grossly symmetric and intact. no focal neuro deficits. Sensation and strength intact throughout. Gait normal/ stable. Skin: intact, normal color and well perfused. Cap refill <2 sec. +small facial abrasions on right lateral face/forehead. scarring/abrasion to right palm. ED Treatment Course - RADIOLOGY Radiology Studies Ordered: Category Date Time Status HEAD CT WITHOUT CONTRAST [CT] Stat CT Scan 03/18/19 11:55 Ordered FOREARM- LEFT [RAD] Stat Radiology 03/18/19 11:55 Ordered KNEE 3 POS-RIGHT [RAD] Stat Radiology 03/18/19 11:55 Ordered WRIST W/HAND-LEFT* [RAD] Stat Radiology 03/18/19 11:55 Ordered Medical Decision Making - Medical Decision Making 03/18/19 12:29 hpi as documented prior notes/documentation/discharge obtained and reviewed, VS reviewed, wnl Vital Signs Temp Pulse Resp BP Pulse Ox 98.3 F 71 18 130/72 97 03/18/19 11:25 03/18/19 11:25 03/18/19 11:25 03/18/19 11:25 03/18/19 11:25 Analgesia with tylenol, reassess Xray of left hand, right knee with normal joint space alignment, no acute fx or dislocation. able to ambulate, gait stable. with cane CT head with baseline chronic left vasogenic edema, no acute bleed/skull fx. unchanged from prior CTH and MRI imaging for her prior brain mets no prodromal sx to suggest alternative life threatening pathology, cardiac or neurologic Discussed results with patient. DALIA wrap for comfort, volar splint for the left wrist contusion. Rest ice and elevation. Pain control with OTC meds including tylenol as needed every 6 hours; no narcotics needed. Ortho followup provided. Dr Jones Please return to ED for increased pain, weakness, numbness/tingling, fever, or redness. fall safety prevention discussed. pt provided impression and plan, discussed results and findings, stable for DC. return precautions given 03/18/19 14:35 *DC/Admit/Observation/Transfer Diagnosis at time of Disposition: Contusion of left wrist, initial encounter, Abrasion Sprain of knee Qualifiers: Encounter type: initial encounter Involved ligament of knee: unspecified ligament Laterality: left Qualified Code(s): S83.92XA - Sprain of unspecified site of left knee, initial encounter - Discharge Dispostion Condition at time of disposition: Improved Decision to Admit order: No - Referrals Referrals: Chet Arzate MD [Staff Physician] - - Patient Instructions Printed Discharge Instructions: DI for Knee Sprain, DI for Contusion, How to Prevent Falls, DI for Abrasion Additional Instructions: you most likely have musculoskeletal strain/contusion of your knee and wrist from your fall your xrays were negative for fracture. you CT is similar to prior findings from your underlying condition you also have some abrasions to your face that will heal you have a small scarred abrasion to your hand, clean with bacitracin, neosporin , (these are antibiotic creams) and soap and water daily avoid heavy lifting or strenuous activity to minimize further injury May take tylenol 650 to 975 mg every 6 hours as needed for mild to moderate pain , available over the counter. This does not require narcotics, as it will precipitate injuries and falls. continue with range of motion exercises, as this will facilitate the healing process; avoid being bed bound and immobile. RICE rest ice elevate the affected extremity Rest, Ice (20 minutes at a time, 3 times a day), Compression (DALIA wrap or splint ), Elevation (above the heart). Follow up with your primary care physician in 1 week if symptoms persist, or with orthopedics if needed. wear the splint to your arm as needed for the next 1 week to help with the healing, make sure to perform range of motion exercises as well. Follow up with primary doctor/specialist services provided as well. orthopedics referrals given. This should heal over the next 3-5 days. - Post Discharge Activity
[2019-03-18] MEDS ORDERED: ACETAMINOPHEN 325 MG TABLET (FP) ONE (12:26)
== END 2019-03-18 14:35 | disposition home or self-care (01) ==
LOC: FER 11:24
DX: S83.92XA Sprain of unspecified site of left knee, initial encounter (principal); W18.39XA Other fall on same level, initial encounter; Y93.89 Activity, other specified; Y92.89 Other specified places as the place of occurrence of the external cause; C34.90 Malignant neoplasm of unspecified part of unspecified bronchus or lung; F99 Mental disorder, not otherwise specified; F17.210 Nicotine dependence, cigarettes, uncomplicated
CPT/HCPCS: 70450-TC; 73090-TC-LT-FY; 73110-TC-LT-FY; 73130-TC-LT-FY; 73562-TC-RT-FY; 99282-25

== ENCOUNTER 2021-02-22 07:14 | Day surgery (SDC) | payer BC, OTHER ==
[2021-02-15 09:31] VITALS: BMI 26.2
[2021-02-22] MEDS ORDERED: LIDOCAINE HCL 2% (20ML MULTI-DOSE VIAL) ONE (08:28)
[2021-02-22] MEDS ORDERED: MIDAZOLAM HCL 2 MG/2 ML SINGLE DOSE VIAL ONE (08:30)
[2021-02-22 09:49] VITALS: TEMP 98.2
[2021-02-22 10:23] VITALS: BP 134/64; PULSE 66
== END 2021-02-22 10:29 | disposition home or self-care (01) ==
LOC: FASU 07:14
PROVIDERS: ATTEND Orthopaedic Surgery Hand Surgery
PROC: 01N50ZZ Release Median Nerve, Open Approach (ICD-10-PCS; principal; 2021-02-22 08:30)
DX: G56.02 Carpal tunnel syndrome, left upper limb (principal)

== ENCOUNTER 2021-05-03 08:24 | Day surgery (SDC) | payer BC, OTHER ==
[2021-03-27 15:29] VITALS: BMI 25.8
[2021-05-03] MEDS ORDERED: LIDOCAINE HCL 2% (20ML MULTI-DOSE VIAL) ONE (09:15)
[2021-05-03] MEDS ORDERED: MIDAZOLAM HCL 2 MG/2 ML SINGLE DOSE VIAL ONE (09:25)
[2021-05-03] MEDS ORDERED: oxyCODONE HCL 5 MG TABLET PO PRN ×2 (09:36)
[2021-05-03] MEDS ORDERED: ONDANSETRON 4 MG/2 ML VIAL IVPUSH PRN (09:36)
[2021-05-03] MEDS ORDERED: LACTATED RINGERS SOLUTION 1,000 ML IV SCH (09:45)
[2021-05-03] MEDS ORDERED: PROPOFOL 20 ML ONE (09:50)
[2021-05-03] MEDS ORDERED: oxyCODONE HCL 5 MG TABLET ONE (10:23)
[2021-05-03] MEDS ORDERED: oxyCODONE HCL 5 MG TABLET PO ONE (10:24)
[2021-05-03 10:34] VITALS: BP 125/67; PULSE 62; TEMP 98.2
== END 2021-05-03 10:56 | disposition home or self-care (01) ==
LOC: FASU 08:24
PROVIDERS: ATTEND Orthopaedic Surgery Hand Surgery
PROC: 01N50ZZ Release Median Nerve, Open Approach (ICD-10-PCS; principal; 2021-05-03 09:45)
DX: G56.01 Carpal tunnel syndrome, right upper limb (principal)

== ENCOUNTER 2021-05-31 12:59 | Emergency (ER) | payer BC, OTHER ==
[2021-05-31 13:21] VITALS: BP 142/77; PULSE 73; TEMP 98.4; BMI 25.7
[2021-05-31] MEDS ORDERED: KETOROLAC TROMETHAMINE 15 MG/ML VIAL IM ONE (15:30)
== END 2021-05-31 16:56 | disposition home or self-care (01) ==
LOC: FER 12:59
PROC: 3E0233Z Introduction of Anti-inflammatory into Muscle, Percutaneous Approach (ICD-10-PCS; principal; 2021-05-31)
DX: M25.562 Pain in left knee (principal)
CPT/HCPCS: 73560-TC-LT-FY; 93971-TC; 99284-25

== ENCOUNTER 2021-11-21 20:58 | Emergency (ER) | payer BC, OTHER ==
[2021-11-21 21:24] VITALS: BP 156/100; PULSE 90; TEMP 98.2; BMI 26.2
== END 2021-11-21 23:14 | disposition home or self-care (01) ==
LOC: JER 20:58
DX: M79.605 Pain in left leg (principal)
CPT/HCPCS: 93971-TC; 99283-25

== ENCOUNTER 2022-05-18 04:13 | Day surgery (SDC) | payer BC, OTHER ==
[2022-05-17 09:05] VITALS: BMI 25.7
[2022-05-18 10:55] VITALS: TEMP 98
[2022-05-18 10:58] VITALS: BP 122/69; PULSE 66; RESP 20
== END 2022-05-18 11:45 | disposition home or self-care (01) ==
LOC: JASU-ENDO 04:13
PROVIDERS: ATTEND Internal Medicine Gastroenterology
PROC: 0DB78ZX Excision of Stomach, Pylorus, Via Natural or Artificial Opening Endoscopic, Diagnostic (ICD-10-PCS; 2022-05-18)
PROC: 0DB28ZX Excision of Middle Esophagus, Via Natural or Artificial Opening Endoscopic, Diagnostic (ICD-10-PCS; 2022-05-18)
PROC: 0DB38ZX Excision of Lower Esophagus, Via Natural or Artificial Opening Endoscopic, Diagnostic (ICD-10-PCS; 2022-05-18)
PROC: 0DB48ZX Excision of Esophagogastric Junction, Via Natural or Artificial Opening Endoscopic, Diagnostic (ICD-10-PCS; 2022-05-18)
PROC: 0DB98ZX Excision of Duodenum, Via Natural or Artificial Opening Endoscopic, Diagnostic (ICD-10-PCS; principal; 2022-05-18 10:00)
DX: K21.00 Gastro-esophageal reflux disease with esophagitis, without bleeding (principal); K44.9 Diaphragmatic hernia without obstruction or gangrene; K29.70 Gastritis, unspecified, without bleeding; K22.89 Other specified disease of esophagus; Z87.11 Personal history of peptic ulcer disease
CPT/HCPCS: 88305-TC; 88342-TC